=== PATIENT | female | born 1975 | race Caucasian/White ===

== ENCOUNTER → 2016-09-17 | Outpatient (CLI) | payer OTHER ==
[2016-09-17 17:41] LABS: POTASSIUM SERUM 4.2 MEQ/L (3.5-5.1)
== END ==
LOC: M WUC 11:48
PROVIDERS: ATTEND Nurse Practitioner Family
DX: L71.8 Other rosacea (principal)

== ENCOUNTER → 2017-04-27 | Outpatient (CLI) | payer BC, OTHER ==
[2017-04-27 13:53] LABS: POTASSIUM SERUM 4.6 MEQ/L (3.5-5.1)
== END ==
LOC: M WUC 10:05
PROVIDERS: ATTEND Nurse Practitioner Family
DX: L71.8 Other rosacea (principal)

== ENCOUNTER → 2017-11-02 | Outpatient (REF) | payer OTHER ==
[2017-11-02 13:46] LABS: URIC ACID 3.8 MG/DL (2.6-6.0)
[2017-11-02 13:46] LABS: C REACTIVE PROTEIN QUANTITATIV < 0.30 MG/DL (0.00-0.30); RHEUMATOID FACTOR QUANT < 10.0 IU/ML (<15.0)
[2017-11-03 14:13] LABS: ANTINUCLEAR ANTIBODIES DIRECT Negative (Negative)
== END ==
LOC: M LAB REF 12:48
DX: M25.50 Pain in unspecified joint (principal)

== ENCOUNTER 2020-01-11 11:42 | Emergency (ER) | payer OTHER ==
[~2020-01-11] VITALS: Ht 165.1 cm; Wt 54.5 kg
[2020-01-11 11:43] VITALS: BP 124/79
[2020-01-11] MEDS ORDERED: MULTCAP PO (12:06)
[2020-01-11] MEDS ORDERED: CLAR10CA3 PO (12:06)
[2020-01-11] MEDS ORDERED: SPIR50TA4 (12:06)
[2020-01-11] MEDS ORDERED: LIDOCAINE 2% MDV 20ML VIAL SC ONE (12:15)
[2020-01-11] MEDS ORDERED: BOOSTRIX/ADACEL VACCINE (DIPHTH/PERTUSS/ACELL/TETANUS) 0.5ML SYR IM ONE (12:15)
[2020-01-11] MEDS ORDERED: KEFL500C17 PO (12:51)
--- NOTE | 2020-01-11 17:23 | REP ---
LEFT HAND SERIES: Four views. HISTORY: Injury. FINDINGS: Four views of the left hand show overall normal mineralization. There is soft tissue swelling and irregularity adjacent to the proximal phalanx of the ring finger. There is a tiny metallic density projecting at the dorsal and radial aspect of the middle phalanx in the adjacent soft tissues. No fractures seen. IMPRESSION: Tiny metallic density at the dorsal aspect of the middle phalangeal soft tissues. Soft tissue irregularity and swelling. No fracture seen. Electronically Signed by Valdez Leblanc MD 01/12/2020 07:56 A
--- NOTE | 2020-01-13 11:27 | ED PDOC ---
Post-Departure Follow-Up certified letter sent to pt re formal read of xray. when pt calls back, review x ray and discuss w pt to determine if foreign body is wiith in current lac or prior. if current recommend [facility]. Deya James MD Jan 13, 2020 11:27
== END 2020-01-11 13:08 | disposition home or self-care (01) ==
LOC: M ED 11:42
DX: S61.305A Unspecified open wound of left ring finger with damage to nail, initial encounter (principal); Y99.8 Other external cause status; Y93.9 Activity, unspecified; Y92.9 Unspecified place or not applicable

== ENCOUNTER → 2021-05-07 | Outpatient (CLI) | payer OTHER ==
[~2021-05-07] MED LIST: CLAR10CA3 PO; KEFL500C17 PO; MULTCAP PO; SPIR50TA4
--- NOTE | 2021-05-07 15:14 | REPMRS ---
Patient History The patient states she had a clinical breast exam in April 2021. Patient had first child at age 30. Family history of breast cancer at age 51 in sister. Took hormonal contraceptives for 5 years. No breast complaints. Pt denied . Patient states no breast complaints today. Patient has signed MRS History Sheet. Digital Woman Screen Mammo: May 07, 2021 - Exam #: [id number] Bilateral CC and MLO view(s) were taken. Technologist: RT Frank Prior study comparison: May 08, 2020, bilateral digital mammo screening bilat, performed at [facility]. May 10, 2019, bilateral digital mammo screening bilat, performed at [facility]. FINDINGS: The breast tissue is extremely dense which could obscure a lesion on mammography. Screening. Digital screening (2D) mammography was performed bilaterally in the CC and MLO projections. Additionally, breast tomosynthesis (3D mammography) was performed bilaterally in the CC and MLO projections. Todays exam was compared to the prior exam/exams. By history, the patient has no complaints of a palpable breast abnormality or other significant breast complaints. The breasts are unchanged in size and shape. Once again, dense heterogenous fibroglandular elements are seen bilaterally in a stable appearing pattern but to such a degree that the sensitivity of the mammogram in detecting cancer is decreased.There are no bree-soft tissue densities or spiculated masses. There is no internal architectural distortion. Once again, stable benign appearing calcifications are seen.There are no suspicious bree-calcific clusters. Skin thickening or nipple retraction is not present. IMPRESSION: BI-RADS Category 2- Benign Findings. There is no evidence of malignant alteration of the breasts. Followup examination recommended in one year. The Volpara volumetric breast density category is D, the breasts are extremely dense which lowers the sensitivity of mammography. This mammogram was read with the assistance of Narus,an FDA approved computer aided detection system for mammography. The lifetime Tyrer-Cuzick score is 22.3 % Due to the density of the breasts or Tyrer Cuzick score of 20% or greater, MRI/whole breast screening ultrasound is warranted. Negative x-ray reports should not delay surgical consultation if a dominant or clinically suspicious mass is present. Not all breast cancers can be identified by mammography. Therefore, we recommend that you continue to perform regular breast self-examination and physical examination and then promptly contact your physician of any concerns or changes. Adenosis and dense breasts may obscure an underlying neoplasm. Assessment: BI-RADS/ACR category 2 mammogram. Benign Findings. Recommendation Routine screening mammogram of both breasts in 1 year. Electronically Signed By: Jarek Ng DO 05/07/21 [id number]
== END ==
LOC: M WHC 13:31
PROVIDERS: ATTEND Obstetrics & Gynecology
DX: Z12.31 Encounter for screening mammogram for malignant neoplasm of breast (principal); Z80.3 Family history of malignant neoplasm of breast

== ENCOUNTER → 2021-07-03 | Outpatient (CLI) | payer OTHER ==
[~2021-07-03] MED LIST changes: -SPIR50TA4; +SPIR50TA4 PO
== END ==
LOC: M LABSMTC 11:47
PROVIDERS: ATTEND Anesthesiology
DX: Z01.812 Encounter for preprocedural laboratory examination (principal); Z20.822 Contact with and (suspected) exposure to COVID-19

== ENCOUNTER 2021-07-08 09:26 | Day surgery (SDC) | payer OTHER ==
[~2021-07-08] VITALS: Ht 165.1 cm; Wt 54.3 kg
[~2021-07-08 09:26] MED LIST changes: +NS 1,000 ML IV ONE
[2021-07-08] MEDS ORDERED: propofoL 200 MG/20 ML VIAL As Ordered ONE (09:54)
[2021-07-08] MEDS ORDERED: LIDOCAINE 2% 100MG/5ML SDV (FOR ANES.) As Ordered ONE (09:54)
--- NOTE | 2021-07-08 11:03 | ROOR ---
Patient Name: Jenifer Ly Procedure Date: 07/08/2021 10:41 AM Date of : 1975 Age: 45 Room: [facility] Gender: Female Note Status: Finalized Procedure: Colonoscopy Indications: Screening for colorectal malignant neoplasm Providers: Lino Flores Jr, MD Referring MD: Bharath Vee MD Requesting Provider: Medicines: Propofol per Anesthesia Complications: No immediate complications. Procedure: Pre-Anesthesia Assessment: - Prior to the procedure, a History and Physical was performed, and patient medications and allergies were reviewed. The patient is competent. The risks and benefits of the procedure and the sedation options and risks were discussed with the patient. All questions were answered and informed consent was obtained. Patient identification and proposed procedure were verified by the physician and the nurse in the pre-procedure area and in the procedure room. Mental Status Examination: alert and oriented. Airway Examination: normal oropharyngeal airway and neck mobility. Respiratory Examination: clear to auscultation. CV Examination: normal. ASA Grade Assessment: II - A patient with mild systemic disease. After reviewing the risks and benefits, the patient was deemed in satisfactory condition to undergo the procedure. The anesthesia plan was to use moderate sedation / analgesia (conscious sedation). Immediately prior to administration of medications, the patient was re-assessed for adequacy to receive sedatives. The heart rate, respiratory rate, oxygen saturations, blood pressure, adequacy of pulmonary ventilation, and response to care were monitored throughout the procedure. The physical status of the patient was re-assessed after the procedure. The Colonoscope was introduced through the anus and advanced to the cecum, identified by appendiceal orifice and ileocecal valve. The colonoscopy was performed without difficulty. The patient tolerated the procedure well. The quality of the bowel preparation was adequate. Findings: The rectum, recto-sigmoid colon, sigmoid colon, descending colon, transverse colon, hepatic flexure, ascending colon, cecum, appendiceal orifice and ileocecal valve appeared normal. The recto-sigmoid colon, sigmoid colon, descending colon, transverse colon and ascending colon were grossly redundant. Impression: - The rectum, recto-sigmoid colon, sigmoid colon, descending colon, transverse colon, hepatic flexure, ascending colon, cecum, appendiceal orifice and ileocecal valve are normal. - Redundant colon. - No specimens collected. Recommendation: - Discharge patient to home (ambulatory). - Discharge patient to home (ambulatory). - Repeat colonoscopy in 10 years for screening purposes. Procedure Code(s): --- Professional --- 23597, Colonoscopy, flexible; diagnostic, including collection of specimen(s) by brushing or washing, when performed (separate procedure) Diagnosis Code(s): --- Professional --- Z12.11, Encounter for screening for malignant neoplasm of colon Q43.8, Other specified congenital malformations of intestine CPT copyright 2019 [employer]. All rights reserved. The codes documented in this report are preliminary and upon certified medical coder review may be revised to meet current compliance requirements. Lino Flores MD Lino Flores Jr, MD 07/08/2021 11:02:24 AM Electronically signed by Lino Flores Jr, MD Number of Addenda: 0 Note Initiated On: 07/08/2021 10:41 AM Estimated Blood Loss: Estimated blood loss: none.
[2021-07-08 11:24] VITALS: BP 108/66
== END 2021-07-08 11:27 | disposition home or self-care (01) ==
LOC: M OPP 09:26
PROVIDERS: ATTEND Surgery
DX: Z12.11 Encounter for screening for malignant neoplasm of colon (principal); Q43.8 Other specified congenital malformations of intestine; Z79.899 Other long term (current) drug therapy

== ENCOUNTER → 2022-05-06 | Outpatient (CLI) | payer OTHER ==
[~2022-05-06] MED LIST changes: -NS 1,000 ML IV ONE
== END ==
LOC: M WHC 12:19
PROVIDERS: ATTEND Family Medicine
DX: Z12.31 Encounter for screening mammogram for malignant neoplasm of breast (principal)

== ENCOUNTER → 2023-05-06 | Outpatient (REF) | payer OTHER | LOC: M PLALAB 07:54 | PROVIDERS: ATTEND Advanced Practice Midwife | DX: Z12.4 Encounter for screening for malignant neoplasm of cervix (principal) | CPT/HCPCS: 87624; G0123 ==

== ENCOUNTER → 2024-05-04 | Outpatient (REF) | payer OTHER ==
[2024-05-06 14:37] LABS: HPV APTIMA Not Detected (Not Detected)
== END ==
LOC: M PLALAB 12:59
PROVIDERS: ATTEND Advanced Practice Midwife
DX: Z12.4 Encounter for screening for malignant neoplasm of cervix (principal)
CPT/HCPCS: 87624; G0123

== ENCOUNTER → 2024-05-11 | Outpatient (CLI) | payer OTHER | LOC: M WHC 13:04 | PROVIDERS: ATTEND Advanced Practice Midwife | DX: N63.21 Unspecified lump in the left breast, upper outer quadrant (principal); N60.02 Solitary cyst of left breast; Z80.3 Family history of malignant neoplasm of breast | CPT/HCPCS: 76642; 77066; G0279 ==